=== PATIENT | male | born 1970 | race American Indian/Alaskan Native ===

== ENCOUNTER 2018-02-13 05:43 | Emergency (ER) | payer SELFPAY ==
[2018-02-13 05:56] VITALS: BP 122/77; PULSE 95; RESP 18; TEMP 98.4; O2SAT 97
--- NOTE | 2018-02-13 06:13 | C.PDOC ---
History Of Present Illness 48 year old male presents to the ED c/o small lump in his lower abdomen. Patient reports he was moving heavy objects all day yesterday after which he developed pain in his lower abdomen. Patient noticed some small lump on his lower abdomen. Patient denies fever, chills, nausea, vomit, dyauria, hemturia, back pain. Chief Complaint (Nursing): Abdominal Pain History Per: Patient History/Exam Limitations: no limitations Onset/Duration Of Symptoms: Days Current Symptoms Are (Timing): Still Present Location Of Pain/Discomfort: RLQ, LLQ Radiation Of Pain To:: None Quality Of Discomfort: "Pain" Exacerbating Factors: None Alleviating Factors: None Recent travel outside of the [place]: No Additional History Per: Patient Past Medical History Reviewed: Historical Data, Nursing Documentation, Vital Signs Vital Signs: Last Vital Signs Temp 98.4 F 02/13/18 05:54 Pulse 95 H 02/13/18 05:54 Resp 18 02/13/18 05:54 BP 122/77 02/13/18 05:54 Pulse Ox 97 02/13/18 06:13 - Medical History PMH: No Chronic Diseases Surgical History: No Surg Hx Family History: States: Unknown Family Hx - Social History Hx Alcohol Use: Yes (ON WEEKENDS) Hx Substance Use: No - Immunization History Hx Tetanus Toxoid Vaccination: No Hx Influenza Vaccination: No Hx Pneumococcal Vaccination: No Review Of Systems Constitutional: Negative for: Fever, Chills Cardiovascular: Negative for: Chest Pain, Palpitations Respiratory: Negative for: Cough, Shortness of Breath Gastrointestinal: Positive for: Abdominal Pain. Negative for: Nausea, Vomiting Musculoskeletal: Positive for: Back Pain Skin: Negative for: Rash Neurological: Negative for: Weakness, Numbness Physical Exam - Physical Exam Appears: Non-toxic, No Acute Distress Skin: Normal Color, Warm, Dry Head: Atraumatic, Normacephalic Eye(s): bilateral: Normal Inspection Oral Mucosa: Moist Neck: Normal ROM, Supple Chest: Symmetrical Cardiovascular: Rhythm Regular Respiratory: Normal Breath Sounds, No Rales, No Rhonchi, No Wheezing Gastrointestinal/Abdominal: Soft, No Tenderness, No Guarding, No Rebound, No Hernia, Other (0.5 cm papule superficial soft tissue above pubic symphysis. tender to palpation, fluctiant, freely movable ) Back: Normal Inspection Extremity: Normal ROM, No Tenderness, No Swelling Neurological/Psych: Oriented x3, Normal Speech Gait: Steady ED Course And Treatment O2 Sat by Pulse Oximetry: 97 (ON RA) Pulse Ox Interpretation: Normal Medical Decision Making Medical Decision Making: Impression: superficial soft tissue infection Plan: * Warm compresses * Antibiotics Disposition - Disposition Referrals: [facility] [Outside] Disposition: HOME/ ROUTINE Disposition Time: 06:11 Condition: GOOD Additional Instructions: warm compresses to area,take abiotics as directed Prescriptions: Doxycycline Hyclate 100 mg PO BID #14 capsule Forms: [employer] (Sinhala) - Clinical Impression Clinical Impression: Skin pustule - Scribe Statement The provider has reviewed the documentation as recorded by the Scribe Beto Pierce All medical record entries made by the Scribe were at my direction and personally dictated by me. I have reviewed the chart and agree that the record accurately reflects my personal performance of the history, physical exam, medical decision making, and the department course for this patient. I have also personally directed, reviewed, and agree with the discharge instructions and disposition.
== END 2018-02-13 06:15 | disposition home or self-care (01) ==
LOC: C.ER 05:43
DX: L08.9 Local infection of the skin and subcutaneous tissue, unspecified (principal)